=== PATIENT | male | born 1950 | race Caucasian/White ===

== ENCOUNTER 2016-06-17 11:24 | Emergency (ER) | payer OTHER ==
[~2016-06-17] VITALS: Ht 170.2 cm; Wt 106.6 kg
--- NOTE | 2016-06-17 12:14 | ED GI/GU/ABDOMINAL COMPLAINT ---
History of Present Illness General Chief Complaint: Abdominal Pain/Flank Pain Stated Complaint: LEFT SIDE ABD PAIN Source: patient Exam Limitations: no limitations Vital Signs & Intake/Output Vital Signs & Intake/Output Vital Signs Date Time Temp Pulse Resp B/P Pulse O2 O2 Flow FiO2 Ox Delivery Rate 06/17 1449 98.3 81 16 142/77 97 Room Air 06/17 1336 97.4 85 16 155/85 97 Room Air 06/17 1213 Room Air 06/17 1136 97.5 85 18 158/92 96 Room Air Room Air Allergies Coded Allergies: NO KNOWN ALLERGIES (06/17/16) Reconcile Medications Atorvastatin Calcium 10 MG TABLET 1 TAB PO DAILY CHOLESTEROL (Reported) Fluticasone Propionate 50 MCG/ACTUATION SPRAY.SUSP 2 SPRAY NASB DAILY ALLERGIES (Reported) Oxycodone HCl/Acetaminophen (Percocet 5-325 MG Tablet) 5 MG-325 MG TABLET 1-2 TAB PO Q6P PRN PAIN Tamsulosin HCl (Flomax) 0.4 MG CAP.ER.24H 1 CAP PO DAILY KIDNEY STONE Triage Note: TRIAGE: 66 Y/O MALE PRESENTS C/O 8/10 LEFT SIDED ABDOMINAL PAIN, RADIATING INTO THE BACK SINCE THIS MORNING. LAST NORMAL BOWEL MOVEMENT THIS MORNING. DENIES MEDICATING AT HOME PRIOR TO ARRIVAL FOR DISCOMFORT. DENIES HISTORY OF SAME. Triage Nurses Notes Reviewed? yes Onset: Abrupt Duration: day(s):, constant Timing: recent history Quality/Severity: moderate, sharpness, severe Location: left flank, left lower quadrant No Modifying Factors: none HPI: 66-year-old male comes into emergency room with complaints of sudden onset left sided flank/abdominal pain that began this morning. Sharp. Nothing seems to make the symptoms better or worse. Denies any fever chills vomiting. Denies any chest pain shortness of breath. Denies any changes in urination. Denies any changes in bowel movement. Denies any prior abdominal surgeries. (DIDI JERONIMO) Past History Travel History Traveled to [place] past 21 day No Medical History Any Pertinent Medical History? see below for history Neurological: NONE EENT: NONE Cardiovascular: hyperlipidemia Respiratory: NONE Gastrointestinal: NONE Hepatic: NONE Renal: NONE Musculoskeletal: NONE Psychiatric: NONE Endocrine: NONE Blood Disorders: NONE Cancer(s): NONE Surgical History Surgical History: non-contributory Psychosocial History What is your primary language Singaporean Tobacco Use: Never used ETOH Use: occasional use Illicit Drug Use: denies illicit drug use Family History Hx Contributory? No (DIDI JERONIMO) Review of Systems Review of Systems Constitutional: Reports: no symptoms. EENTM: Reports: no symptoms. Respiratory: Reports: no symptoms. Cardiovascular: Reports: no symptoms. GI: Reports: see HPI. Genitourinary: Reports: no symptoms. Musculoskeletal: Reports: no symptoms. Skin: Reports: no symptoms. Neurological/Psychological: Reports: no symptoms. Hematologic/Endocrine: Reports: no symptoms. Immunologic/Allergic: Reports: no symptoms. All Other Systems: Reviewed and Negative (DIDI JERONIMO) Physical Exam Physical Exam General Appearance: well developed/nourished, no apparent distress, alert Head: atraumatic, normal appearance Eyes: Bilateral: normal appearance. Ears, Nose, Throat, Mouth: hearing grossly normal, moist mucous membrane Neck: normal inspection Respiratory: no respiratory distress Gastrointestinal: soft, tenderness (left nower abd) Back: normal inspection, normal range of motion Extremities: normal range of motion Neurologic/Psych: awake, alert, oriented x 3, normal gait, normal mood/affect Skin: intact, normal color Core Measures ACS in differential dx? No Severe Sepsis Present: No Septic Shock Present: No (DIDI JERONIMO) Progress Differential Diagnosis: AMI, appendicitis, colon cancer, cholecystitis, diverticulitis, pancreatitis, prostatitis, PUD/GERD, perforated viscous, pyelonephritis, STD, testicular torsion, ureterolithiasis, urinary retention, urethritis, UTI/pyelo Plan of Care: Orders Procedure Date/time Status URINALYSIS 06/17 1213 Complete LIPASE 06/17 1213 Complete COMPREHENSIVE METABOLIC PANEL 06/17 1213 Complete CBC WITHOUT DIFFERENTIAL 06/17 1213 Complete Laboratory Tests 06/17/16 1227: Urinalysis LIGHT H, Urine Color YEL, Urine Clarity HAZY H, Urine pH 6.0, Ur Specific [place] 1.025, Urine Protein TRACE H, Urine Ketones NEG, Urine Nitrite NEG, Urine Bilirubin NEG, Urine Urobilinogen 0.2, Ur Leukocyte Esterase NEG, Ur Microscopic SEDIMENT EXAMINED, Urine RBC >75 H, Urine WBC RARE, Ur Epithelial Cells FEW, Hyaline Casts RARE H, Granular Casts RARE H, Urine Mucus MANY H, Urine Hemoglobin LARGE H, Urine Glucose NEG 06/17/16 1221: Anion Gap 10, Estimated GFR > 60, BUN/Creatinine Ratio 11.0, Glucose 150 H, Calcium 9.7, Total Bilirubin 0.6, AST 23, ALT 45, Alkaline Phosphatase 125, Total Protein 8.5 H, Albumin 4.5, Globulin 4.0, Albumin/Globulin Ratio 1.1, Lipase 58, CBC w Diff NO MAN DIFF REQ, RBC 5.18, MCV 92.4, MCH 30.8, RDW 13.3, MPV 8.8, Gran % 71.5, Lymphocytes % 19.1 L, Monocytes % 8.2, Eosinophils % 0.6, Basophils % 0.6, Absolute Granulocytes 8.0 H, Absolute Lymphocytes 2.1, Absolute Monocytes 0.9 H, Absolute Eosinophils 0.1, Absolute Basophils 0.1, PUBS MCHC 33.3 Diagnostic Imaging: Viewed by Me: CT Scan. Discussed w/RAD: CT Scan. Radiology Impression: SERVICE DATE: 06/17/16-121 EXAM TYPE: CAT - CT ABD & PELVIS W/O IV CONTRAS EXAMINATION: CT ABDOMEN AND PELVIS WITHOUT CONTRAST CLINICAL INFORMATION: Left flank pain. Question kidney stone. COMPARISON: 2013 TECHNIQUE: Multidetector volumetric imaging was performed from the superior aspect of the liver through the pubic symphysis. Sagittal and coronal reformatted images were obtained on the technologist's workstation. DLP: 1187 mGy-cm. FINDINGS: LUNG BASES: A subpleural nodule at the right lung base laterally measures 0.5 cm in size and is smaller to stable in size compared to the 2013 study. No focal consolidation. No pleural effusion. A small hiatal hernia is noted. LIVER, GALLBLADDER, AND BILIARY TREE: The liver is diffusely low in attenuation and somewhat heterogeneous. On this noncontrast study, the liver is otherwise grossly unremarkable. The bladder is nondistended. Multiple small gallstones are present. There is no pericholecystic fluid or wall edema. PANCREAS: Unremarkable. SPLEEN: Unremarkable. ADRENAL GLANDS: Unremarkable. KIDNEYS AND URETERS: The kidneys are symmetric in size. There is bilateral perinephric stranding. There is a tiny punctate density in the upper pole of the right kidney consistent with a nonobstructing stone. There is mild left renal hydronephrosis. There is a hyperdense structure in the distal left ureter with mild proximal hydroureteronephrosis. The hyperdense structure measures 0.5 cm in size. BLADDER: Unremarkable. GASTROINTESTINAL TRACT: There are no dilated loops of small or large bowel. Normal appendix is visualized in the right lower quadrant. ABDOMINAL WALL: There is a fat-containing periumbilical hernia measuring 4.9 cm in diameter. LYMPH NODES: Normal. VASCULAR: Unremarkable. PELVIC VISCERA: Prostate and seminal vesicles are unremarkable. OSSEOUS STRUCTURES: Unremarkable. IMPRESSION: 1. Mild left hydroureteronephrosis secondary to 0.5 cm distal left ureteral stone. 2. Large fat-containing periumbilical hernia, increased in size compared to 2014. 3. Hepatic steatosis. 4. Small hiatal hernia. DICTATED BY: OSCAR DAVIS MD Initial ED EKG: none Comments: 06/17/2016 3:32:09 PM Patient's pain is under control. Patient clinically looks well upon reevaluation. Referred to urologist. Return if any other concerns. Nontoxic- appearing. (MAICOL ALLAN,DIDI) Departure Departure Disposition: HOME OR SELF CARE Condition: Stable Clinical Impression Primary Impression: Kidney stone Referrals: TAHMINA RODRIGUEZ,FRANK WILD DO,DEMAR Arellano (PCP/Family) Additional Instructions: take Percocet and Flomax as prescribed. Follow-up with urologist in 2 days. Return if any other concerns worsening symptoms. Please go over all results of today's visit with your primary care doctor. Contact your primary care doctor to let them know you were here in the emergency room. There may be nonspecific findings which may not be related to your visit today here in the emergency room but may require further evaluation and chronic monitoring by your primary care doctor. If you had a laceration today the chance of foreign body always remains. You should follow-up with your primary care doctor for recheck in 3-5 days for a wound check. If you had an x-ray done there is a chance that a fracture could have been missed on initial read and you should follow-up with your primary care doctor for repeat x-rays if symptoms persist. If your blood pressure was elevated here in the emergency room please have rechecked by her primary care doctor within the next 48 hours by your primary care doctor. If you were prescribed a narcotic here in the emergency room or any type of controlled substances you're not allowed to drive while taking this medication or operate any type of heavy machinery. Narcotics can make you feel lightheaded dizziness nausea and can cause constipation. You may need to product picker a stool softener. Thank you for choosing [facility] emergency room. Please return to the emergency room immediately if you have any other concerns worsening of symptoms. Departure Forms: Customer Survey General Discharge Information Prescriptions: Current Visit Scripts Oxycodone HCl/Acetaminophen (Percocet 5-325 MG Tablet) 1-2 TAB PO Q6P PRN PAIN #20 TAB Tamsulosin HCl (Flomax) 1 CAP PO DAILY #10 CAP (DIDI JERONIMO) PA/PATIENT TRANSPORTER Co-Sign Statement Statement: ED Attending supervision documentation- [X] I saw and evaluated the patient. I have also reviewed all the pertinent lab results and diagnostic results. I agree with the findings and the plan of care as documented in the PA's/PATIENT TRANSPORTER's documentation. [X] I have reviewed the ED Record and agree with the PA's/PATIENT TRANSPORTER's documentation. [] Additions or exceptions (if any) to the PAs/PATIENT TRANSPORTER's note and plan are summarized below: [] (JENNYFER RODRIGUEZ,TONY Burden)
[2016-06-17 12:43] LABS: ABSOLUTE BASOPHIL COUNT 0.1 /CUMM (0.0-0.2); ABSOLUTE EOSINOPHIL COUNT 0.1 /CUMM (0.0-0.7); ABSOLUTE LYMPH COUNT 2.1 /CUMM (1.2-3.4); ABSOLUTE MONOCYTE COUNT 0.9 /CUMM (0.10-0.60); BASOPHIL % 0.6 % (0.0-2.0); EOSINOPHIL % 0.6 % (0-5); GRANULOCYTE % 71.5 % (42.2-75.2); HEMATOCRIT 47.9 % (42-52); MEAN CORPUSCULAR HGB 30.8 PG (27.0-31.0); MEAN CORPUSCULAR HGB CONC 33.3 G/DL (33.0-37.0); MEAN CORPUSCULAR VOLUME 92.4 FL (80.0-94.0); MEAN PLATELET VOLUME 8.8 FL (7.4-10.4); PLATELET COUNT 298 /CUMM (130-400); RBC DISTRIBUTION WIDTH 13.3 % (11.5-14.5); RED BLOOD CELL CT 5.18 /CUMM (4.70-6.10); WHITE BLOOD CELL COUNT 11.1 /CUMM (4.8-10.8)
[2016-06-17] MEDS ORDERED: ATORVASTATIN CA10 M1 PO (12:44)
[2016-06-17] MEDS ORDERED: FLUTICASONE PRO16 GM NASB (12:45)
[2016-06-17] MEDS ORDERED: FLOMAX0.4 M1 PO (14:20)
[2016-06-17] MEDS ORDERED: PERCOCET 5-3251 EACH PO (14:20)
--- NOTE | 2016-06-17 14:34 | CT SCAN REPORT ---
EXAMINATION: CT ABDOMEN AND PELVIS WITHOUT CONTRAST CLINICAL INFORMATION: Left flank pain. Question kidney stone. COMPARISON: 03/25/2014 TECHNIQUE: Multidetector volumetric imaging was performed from the superior aspect of the liver through the pubic symphysis. Sagittal and coronal reformatted images were obtained on the technologist's workstation. DLP: 1187 mGy-cm. FINDINGS: LUNG BASES: A subpleural nodule at the right lung base laterally measures 0.5 cm in size and is smaller to stable in size compared to the 2014 study. No focal consolidation. No pleural effusion. A small hiatal hernia is noted. LIVER, GALLBLADDER, AND BILIARY TREE: The liver is diffusely low in attenuation and somewhat heterogeneous. On this noncontrast study, the liver is otherwise grossly unremarkable. The bladder is nondistended. Multiple small gallstones are present. There is no pericholecystic fluid or wall edema. PANCREAS: Unremarkable. SPLEEN: Unremarkable. ADRENAL GLANDS: Unremarkable. KIDNEYS AND URETERS: The kidneys are symmetric in size. There is bilateral perinephric stranding. There is a tiny punctate density in the upper pole of the right kidney consistent with a nonobstructing stone. There is mild left renal hydronephrosis. There is a hyperdense structure in the distal left ureter with mild proximal hydroureteronephrosis. The hyperdense structure measures 0.5 cm in size. BLADDER: Unremarkable. GASTROINTESTINAL TRACT: There are no dilated loops of small or large bowel. Normal appendix is visualized in the right lower quadrant. ABDOMINAL WALL: There is a fat-containing periumbilical hernia measuring 4.9 cm in diameter. LYMPH NODES: Normal. VASCULAR: Unremarkable. PELVIC VISCERA: Prostate and seminal vesicles are unremarkable. OSSEOUS STRUCTURES: Unremarkable. IMPRESSION: 1. Mild left hydroureteronephrosis secondary to 0.5 cm distal left ureteral stone. 2. Large fat-containing periumbilical hernia, increased in size compared to 2013. 3. Hepatic steatosis. 4. Small hiatal hernia.
[2016-06-17 14:49] VITALS: BP 142/77
== END 2016-06-17 14:57 ==
LOC: ERH 11:24
PROVIDERS: Physician Assistant Medical
DX: N20.0 Calculus of kidney (principal)
CPT/HCPCS: 74176; 81001; 96361; 96374; J1885